=== PATIENT | female | born 1970 | race Caucasian/White ===

== ENCOUNTER 2022-03-19 08:19 | Emergency (ER) | payer OTHER ==
[~2022-03-19] VITALS: Ht 162.6 cm; Wt 97.7 kg
[2022-03-19 08:19] VITALS: BP 122/82
[2022-03-19] MEDS ORDERED: MENT7.6L2 PO (08:20)
[2022-03-19 08:56] LABS: COVID AG,FIA SOURCE NASAL SWAB
[2022-03-19 09:38] LABS: INFLUENZA TYPE A NEGATIVE FOR TYPE A (NEGATIVE); INFLUENZA TYPE B NEGATIVE FOR TYPE B (NEGATIVE)
[2022-03-19] MEDS ORDERED: BENZ1LOZ77 PO (09:42)
== END 2022-03-19 09:52 | disposition home or self-care (01) ==
LOC: EMS 08:23
DX: J02.0 Streptococcal pharyngitis (principal); F17.210 Nicotine dependence, cigarettes, uncomplicated; Z20.822 Contact with and (suspected) exposure to COVID-19
CPT/HCPCS: 87804; 99283